=== PATIENT | male | born 1965 | race Two or more races ===

== ENCOUNTER 2023-10-19 16:55 | Inpatient (IN) | payer OTHER ==
[2023-10-19 18:07] VITALS: BMI 24.1
[2023-10-19] MEDS ORDERED: BENZOCAINE/MENTHOL (CHLORASEPTIC ) LOZENGE MM PRN (19:56)
[2023-10-19] MEDS ORDERED: MAG HYDROX/AL HYDROX/SIMETH 30 ML UNIT-DOSE CUP PO PRN (19:56)
[2023-10-19] MEDS ORDERED: ACETAMINOPHEN 325 MG TABLET (FP) PO PRN (19:56)
[2023-10-19] MEDS ORDERED: IBUPROFEN 600 MG TABLET (FP) PO PRN (19:56)
[2023-10-19] MEDS ORDERED: MAGNESIUM HYDROX 2400MG/30ML ORAL SUSPENSION 30 ML CUP PO PRN (19:56)
[2023-10-19] MEDS ORDERED: DOCUSATE SODIUM 100 MG CAPSULE (FP) PO PRN (19:56)
[2023-10-19] MEDS ORDERED: LOPERAMIDE HCL 2 MG CAPSULE PO PRN (19:56)
[2023-10-19] MEDS ORDERED: IBUPROFEN 400 MG TABLET (FP) PO PRN (19:56)
[2023-10-19] MEDS ORDERED: guaiFENesin 600 MG TABLET.ER (FP) PO PRN (19:56)
[2023-10-19] MEDS ORDERED: P-EPHED 60MG/TRIPROLIDI 2.5MG TABLET PO PRN (19:56)
[2023-10-19] MEDS ORDERED: BISACODYL 5 MG TABLET.DR (FP) PO PRN (19:56)
[2023-10-19] MEDS ORDERED: POLYETHYLENE GLYCOL (HEALTHYLAX) 3350 17 GM PACKET PO PRN (19:56)
[2023-10-19] MEDS ORDERED: BENZONATATE 200 MG CAPSULE PO PRN (19:56)
[2023-10-19] MEDS ORDERED: amLODIPine BESYLATE 5 MG TABLET (FP) ONE (20:23)
[2023-10-19] MEDS: amLODIPine BESYLATE 10 MG TABLET (FP) PO SCH (20:28)
[2023-10-19] MEDS: MELATONIN 5 MG TABLETS PO SCH (21:40)
[2023-10-19] MEDS: THIAMINE HCL 100 MG TABLET (FP) PO SCH (21:40)
[2023-10-19] MEDS: levETIRAcetam 500 MG TABLET (FP) PO SCH (21:40)
[2023-10-19] MEDS ORDERED: TUBERCULIN PPD 5 TU/0.1ML VIAL ID ONE (21:43)
[2023-10-20] MEDS: levETIRAcetam 500 MG TABLET (FP) PO SCH ×2 (10:10→21:32)
[2023-10-20] MEDS: PRENATAL VITAMINS W/ FOLIC ACID TABLET (FP) PO SCH (10:10)
[2023-10-20] MEDS: amLODIPine BESYLATE 10 MG TABLET (FP) PO SCH (10:10)
[2023-10-20] MEDS: BICTEGRAV/EMTRICIT/TENOFOV (BIKTARVY) 50-200-25 MG TABLET PO SCH (13:50)
[2023-10-20] MEDS: THIAMINE HCL 100 MG TABLET (FP) PO SCH (21:32)
[2023-10-20] MEDS: MELATONIN 5 MG TABLETS PO SCH (21:32)
[2023-10-21] MEDS: PRENATAL VITAMINS W/ FOLIC ACID TABLET (FP) PO SCH (09:43)
[2023-10-21] MEDS: BICTEGRAV/EMTRICIT/TENOFOV (BIKTARVY) 50-200-25 MG TABLET PO SCH (09:43)
[2023-10-21] MEDS: levETIRAcetam 500 MG TABLET (FP) PO SCH ×2 (09:43→21:42)
[2023-10-21] MEDS: amLODIPine BESYLATE 10 MG TABLET (FP) PO SCH (09:43)
[2023-10-21] MEDS: cloNIDine HCL 0.1 MG TABLET PO SCH ×2 (09:44→21:42)
[2023-10-21] MEDS: MELATONIN 5 MG TABLETS PO SCH (21:41)
[2023-10-21] MEDS: THIAMINE HCL 100 MG TABLET (FP) PO SCH (21:41)
[2023-10-21 22:57] LABS: PH,URINE 7.5 (5.0-8.0); URINE APPEARANCE CLEAR; URINE BILIRUBIN NEGATIVE (NEGATIVE); URINE COLOR YELLOW; URINE GLUCOSE (UA) TRACE (NEGATIVE); URINE KETONE NEGATIVE (NEGATIVE); URINE LEUK ESTERASE NEGATIVE (NEGATIVE); URINE NITRITE NEGATIVE (NEGATIVE); URINE PROTEIN NEGATIVE (NEGATIVE); URINE UROBILINOGEN 0.2 mg/dL (0.2-1.0)
[2023-10-22] MEDS: BICTEGRAV/EMTRICIT/TENOFOV (BIKTARVY) 50-200-25 MG TABLET PO SCH (10:42)
[2023-10-22] MEDS: levETIRAcetam 500 MG TABLET (FP) PO SCH ×2 (10:42→21:17)
[2023-10-22] MEDS: PRENATAL VITAMINS W/ FOLIC ACID TABLET (FP) PO SCH (10:42)
[2023-10-22] MEDS: amLODIPine BESYLATE 10 MG TABLET (FP) PO SCH (10:42)
[2023-10-22] MEDS: cloNIDine HCL 0.1 MG TABLET PO SCH ×2 (10:42→21:17)
[2023-10-22 14:21] LABS: BASO % 1.3 % (0-2.0); EOS % 4.2 % (0-4.5); HEMATOCRIT 39.1 % (35.4-49); HEMOGLOBIN 12.6 GM/dL (11.7-16.9); LYMPH % 42.3 % (8-40); MCH 32.6 pg (25.7-33.7); MCHC 32.3 g/dl (32.0-35.9); MEAN CELL VOLUME 100.9 fl (80-96); MEAN PLT VOLUME 10.1 fl (7.5-11.1); MONO % 11.8 % (3.8-10.2); NEUT % 40.4 % (42.8-82.8); PLATELET COUNT 159 10^3/uL (134-434); RBC 3.87 M/mm3 (4.00-5.60); WHITE BLOOD COUNT 3.2 K/mm3 (4.0-10.0)
[2023-10-22 14:39] LABS: INR 1.03 (0.83-1.09)
[2023-10-22 14:52] LABS: MAGNESIUM 2.5 mg/dL (1.8-2.4)
[2023-10-22] MEDS: MELATONIN 5 MG TABLETS PO SCH (21:17)
[2023-10-22] MEDS: THIAMINE HCL 100 MG TABLET (FP) PO SCH (21:17)
[2023-10-22 21:39] LABS: HIV INTERPRETATION PRESUMPTIVE POSITIVE (NEGATIVE)
[2023-10-23] MEDS: BICTEGRAV/EMTRICIT/TENOFOV (BIKTARVY) 50-200-25 MG TABLET PO SCH (10:13)
[2023-10-23] MEDS: PRENATAL VITAMINS W/ FOLIC ACID TABLET (FP) PO SCH (10:13)
[2023-10-23] MEDS: levETIRAcetam 500 MG TABLET (FP) PO SCH ×2 (10:13→21:02)
[2023-10-23] MEDS: amLODIPine BESYLATE 10 MG TABLET (FP) PO SCH (10:13)
[2023-10-23] MEDS: cloNIDine HCL 0.1 MG TABLET PO SCH ×2 (10:13→21:02)
[2023-10-23 12:46] LABS: POTASSIUM 4.2 mmol/L (3.5-5.1)
[2023-10-23 12:48] LABS: CALCIUM 9.5 mg/dL (8.5-10.1)
[2023-10-23 12:49] LABS: ALBUMIN 3.5 g/dl (3.4-5.0); BLOOD UREA NITROGEN 12.8 mg/dL (7-18)
[2023-10-23 12:52] LABS: CREATININE 1.1 mg/dL (0.55-1.3)
[2023-10-23 12:53] LABS: BILIRUBIN,TOTAL 0.8 mg/dL (0.2-1); TOT PROT 6.3 g/dl (6.4-8.2)
[2023-10-23] MEDS: HYDROCHLOROTHIAZIDE 12.5 MG CAPSULE (FP) PO SCH (13:09)
[2023-10-23] MEDS: THIAMINE HCL 100 MG TABLET (FP) PO SCH (21:02)
[2023-10-23] MEDS: MELATONIN 5 MG TABLETS PO SCH (21:02)
[2023-10-24] MEDS: amLODIPine BESYLATE 10 MG TABLET (FP) PO SCH (10:46)
[2023-10-24] MEDS: HYDROCHLOROTHIAZIDE 12.5 MG CAPSULE (FP) PO SCH (10:46)
[2023-10-24] MEDS: cloNIDine HCL 0.1 MG TABLET PO SCH ×2 (10:46→21:32)
[2023-10-24] MEDS: PRENATAL VITAMINS W/ FOLIC ACID TABLET (FP) PO SCH (10:46)
[2023-10-24] MEDS: BICTEGRAV/EMTRICIT/TENOFOV (BIKTARVY) 50-200-25 MG TABLET PO SCH (10:46)
[2023-10-24] MEDS: levETIRAcetam 500 MG TABLET (FP) PO SCH ×2 (10:46→21:32)
[2023-10-24] MEDS: MELATONIN 5 MG TABLETS PO SCH (21:32)
[2023-10-24] MEDS: THIAMINE HCL 100 MG TABLET (FP) PO SCH (21:32)
[2023-10-25] MEDS: BICTEGRAV/EMTRICIT/TENOFOV (BIKTARVY) 50-200-25 MG TABLET PO SCH (10:08)
[2023-10-25] MEDS: PRENATAL VITAMINS W/ FOLIC ACID TABLET (FP) PO SCH (10:08)
[2023-10-25] MEDS: HYDROCHLOROTHIAZIDE 12.5 MG CAPSULE (FP) PO SCH (10:09)
[2023-10-25] MEDS: levETIRAcetam 500 MG TABLET (FP) PO SCH ×2 (10:09→21:25)
[2023-10-25] MEDS: cloNIDine HCL 0.1 MG TABLET PO SCH (10:09)
[2023-10-25] MEDS: amLODIPine BESYLATE 10 MG TABLET (FP) PO SCH (10:09)
[2023-10-25] MEDS: THIAMINE HCL 100 MG TABLET (FP) PO SCH (21:25)
[2023-10-25] MEDS: MELATONIN 5 MG TABLETS PO SCH (21:25)
[2023-10-26] MEDS: levETIRAcetam 500 MG TABLET (FP) PO SCH ×2 (10:24→21:12)
[2023-10-26] MEDS: BICTEGRAV/EMTRICIT/TENOFOV (BIKTARVY) 50-200-25 MG TABLET PO SCH (10:24)
[2023-10-26] MEDS: HYDROCHLOROTHIAZIDE 25 MG TABLET (FP) PO SCH (10:24)
[2023-10-26] MEDS: PRENATAL VITAMINS W/ FOLIC ACID TABLET (FP) PO SCH (10:24)
[2023-10-26] MEDS: amLODIPine BESYLATE 10 MG TABLET (FP) PO SCH (10:24)
[2023-10-26] MEDS: MELATONIN 5 MG TABLETS PO SCH (21:12)
[2023-10-26] MEDS: THIAMINE HCL 100 MG TABLET (FP) PO SCH (21:12)
[2023-10-27] MEDS: PRENATAL VITAMINS W/ FOLIC ACID TABLET (FP) PO SCH (09:38)
[2023-10-27] MEDS: amLODIPine BESYLATE 10 MG TABLET (FP) PO SCH (09:38)
[2023-10-27] MEDS: HYDROCHLOROTHIAZIDE 25 MG TABLET (FP) PO SCH (09:39)
[2023-10-27] MEDS: BICTEGRAV/EMTRICIT/TENOFOV (BIKTARVY) 50-200-25 MG TABLET PO SCH (09:39)
[2023-10-27] MEDS: levETIRAcetam 500 MG TABLET (FP) PO SCH ×2 (09:39→21:26)
[2023-10-27] MEDS: THIAMINE HCL 100 MG TABLET (FP) PO SCH (21:26)
[2023-10-27] MEDS: MELATONIN 5 MG TABLETS PO SCH (21:26)
[2023-10-28] MEDS: HYDROCHLOROTHIAZIDE 25 MG TABLET (FP) PO SCH (09:56)
[2023-10-28] MEDS: PRENATAL VITAMINS W/ FOLIC ACID TABLET (FP) PO SCH (09:56)
[2023-10-28] MEDS: BICTEGRAV/EMTRICIT/TENOFOV (BIKTARVY) 50-200-25 MG TABLET PO SCH (09:56)
[2023-10-28] MEDS: levETIRAcetam 500 MG TABLET (FP) PO SCH ×2 (09:56→21:02)
[2023-10-28] MEDS: amLODIPine BESYLATE 10 MG TABLET (FP) PO SCH (10:04)
[2023-10-28] MEDS: MELATONIN 5 MG TABLETS PO SCH (21:02)
[2023-10-28] MEDS: THIAMINE HCL 100 MG TABLET (FP) PO SCH (21:02)
[2023-10-29] MEDS: cloNIDine HCL 0.1 MG TABLET PO PRN (06:17)
[2023-10-29] MEDS: levETIRAcetam 500 MG TABLET (FP) PO SCH ×2 (10:11→21:23)
[2023-10-29] MEDS: amLODIPine BESYLATE 10 MG TABLET (FP) PO SCH (10:11)
[2023-10-29] MEDS: PRENATAL VITAMINS W/ FOLIC ACID TABLET (FP) PO SCH (10:11)
[2023-10-29] MEDS: BICTEGRAV/EMTRICIT/TENOFOV (BIKTARVY) 50-200-25 MG TABLET PO SCH (10:12)
[2023-10-29] MEDS: HYDROCHLOROTHIAZIDE 25 MG TABLET (FP) PO SCH (10:25)
[2023-10-29] MEDS: TRIAMTERENE AND HCTZ - 37.5 MG/25 MG CAPSULE PO SCH (12:40)
[2023-10-29] MEDS: THIAMINE HCL 100 MG TABLET (FP) PO SCH (21:23)
[2023-10-29] MEDS: MELATONIN 5 MG TABLETS PO SCH (21:23)
[2023-10-30] MEDS: PRENATAL VITAMINS W/ FOLIC ACID TABLET (FP) PO SCH (09:58)
[2023-10-30] MEDS: levETIRAcetam 500 MG TABLET (FP) PO SCH ×2 (09:58→21:25)
[2023-10-30] MEDS: amLODIPine BESYLATE 10 MG TABLET (FP) PO SCH (09:58)
[2023-10-30] MEDS: TRIAMTERENE AND HCTZ - 37.5 MG/25 MG CAPSULE PO SCH (09:58)
[2023-10-30] MEDS: BICTEGRAV/EMTRICIT/TENOFOV (BIKTARVY) 50-200-25 MG TABLET PO SCH (09:58)
[2023-10-30] MEDS: MELATONIN 5 MG TABLETS PO SCH (21:25)
[2023-10-30] MEDS: THIAMINE HCL 100 MG TABLET (FP) PO SCH (21:25)
[2023-10-31] MEDS: amLODIPine BESYLATE 10 MG TABLET (FP) PO SCH (10:22)
[2023-10-31] MEDS: BICTEGRAV/EMTRICIT/TENOFOV (BIKTARVY) 50-200-25 MG TABLET PO SCH (10:22)
[2023-10-31] MEDS: PRENATAL VITAMINS W/ FOLIC ACID TABLET (FP) PO SCH (10:22)
[2023-10-31] MEDS: levETIRAcetam 500 MG TABLET (FP) PO SCH ×2 (10:22→21:18)
[2023-10-31] MEDS: TRIAMTERENE AND HCTZ - 37.5 MG/25 MG CAPSULE PO SCH (10:22)
[2023-10-31] MEDS: THIAMINE HCL 100 MG TABLET (FP) PO SCH (21:18)
[2023-10-31] MEDS: MELATONIN 5 MG TABLETS PO SCH (21:18)
[2023-11-01] MEDS: cloNIDine HCL 0.1 MG TABLET PO PRN (06:01)
[2023-11-01] MEDS: PRENATAL VITAMINS W/ FOLIC ACID TABLET (FP) PO SCH (10:02)
[2023-11-01] MEDS: amLODIPine BESYLATE 10 MG TABLET (FP) PO SCH (10:02)
[2023-11-01] MEDS: levETIRAcetam 500 MG TABLET (FP) PO SCH ×2 (10:03→21:16)
[2023-11-01] MEDS: BICTEGRAV/EMTRICIT/TENOFOV (BIKTARVY) 50-200-25 MG TABLET PO SCH (10:03)
[2023-11-01] MEDS: TRIAMTERENE AND HCTZ - 37.5 MG/25 MG CAPSULE PO SCH (10:04)
[2023-11-01] MEDS: THIAMINE HCL 100 MG TABLET (FP) PO SCH (21:16)
[2023-11-01] MEDS: MELATONIN 5 MG TABLETS PO SCH (21:16)
[2023-11-02] MEDS: BICTEGRAV/EMTRICIT/TENOFOV (BIKTARVY) 50-200-25 MG TABLET PO SCH (10:39)
[2023-11-02] MEDS: PRENATAL VITAMINS W/ FOLIC ACID TABLET (FP) PO SCH (10:39)
[2023-11-02] MEDS: amLODIPine BESYLATE 10 MG TABLET (FP) PO SCH (10:39)
[2023-11-02] MEDS: TRIAMTERENE AND HCTZ - 37.5 MG/25 MG CAPSULE PO SCH (10:39)
[2023-11-02] MEDS: levETIRAcetam 500 MG TABLET (FP) PO SCH ×2 (10:39→21:11)
[2023-11-02] MEDS: MELATONIN 5 MG TABLETS PO SCH (21:11)
[2023-11-02] MEDS: THIAMINE HCL 100 MG TABLET (FP) PO SCH (21:11)
[2023-11-03] MEDS: cloNIDine HCL 0.1 MG TABLET PO PRN (06:41)
[2023-11-03] MEDS: BICTEGRAV/EMTRICIT/TENOFOV (BIKTARVY) 50-200-25 MG TABLET PO SCH (09:57)
[2023-11-03] MEDS: PRENATAL VITAMINS W/ FOLIC ACID TABLET (FP) PO SCH (09:57)
[2023-11-03] MEDS: amLODIPine BESYLATE 10 MG TABLET (FP) PO SCH (09:58)
[2023-11-03] MEDS: TRIAMTERENE AND HCTZ - 37.5 MG/25 MG CAPSULE PO SCH (09:58)
[2023-11-03] MEDS: levETIRAcetam 500 MG TABLET (FP) PO SCH ×2 (09:58→21:16)
[2023-11-03] MEDS: THIAMINE HCL 100 MG TABLET (FP) PO SCH (21:16)
[2023-11-03] MEDS: MELATONIN 5 MG TABLETS PO SCH (21:16)
[2023-11-04 06:14] VITALS: RESP 18; TEMP 97.1
[2023-11-04 08:49] VITALS: BP 149/88; PULSE 88
[2023-11-04] MEDS: levETIRAcetam 500 MG TABLET (FP) PO SCH (10:13)
[2023-11-04] MEDS: amLODIPine BESYLATE 10 MG TABLET (FP) PO SCH (10:13)
[2023-11-04] MEDS: TRIAMTERENE AND HCTZ - 37.5 MG/25 MG CAPSULE PO SCH (10:14)
[2023-11-04] MEDS: BICTEGRAV/EMTRICIT/TENOFOV (BIKTARVY) 50-200-25 MG TABLET PO SCH (10:14)
[2023-11-04] MEDS: PRENATAL VITAMINS W/ FOLIC ACID TABLET (FP) PO SCH (10:15)
== END 2023-11-04 10:17 | disposition home or self-care (01) | DRG 895 ==
LOC: YASAS 16:55 → Y3W 21:16
PROVIDERS: ADMIT Allergy & Immunology; ATTEND Student in an Organized Health Care Education/Training Program
PROC: HZ42ZZZ Group Counseling for Substance Abuse Treatment, Cognitive-Behavioral (ICD-10-PCS; principal; 2023-10-19)
DX: F14.20 Cocaine dependence, uncomplicated (principal); F17.210 Nicotine dependence, cigarettes, uncomplicated; Z21 Asymptomatic human immunodeficiency virus [HIV] infection status; I10 Essential (primary) hypertension; B18.2 Chronic viral hepatitis C; H91.92 Unspecified hearing loss, left ear; Z86.19 Personal history of other infectious and parasitic diseases; Z87.820 Personal history of traumatic brain injury
CPT/HCPCS: 0241U-QW; 36415; 80053; 80061; 81003; 82652; 83735; 84153; 85025; 85610; 86803; 87389; 87522; 87811